=== PATIENT | female | born 1995 | race Two or more races ===

== ENCOUNTER 2016-09-28 02:17 | Outpatient (CLI) | payer OTHER ==
[~2016-09-28] VITALS: Ht 157.5 cm; Wt 84.0 kg
[2016-09-28 02:37] VITALS: BP 136/81
[2016-09-28] MEDS ORDERED: ZOLPIDEM 10MG TABLET ONE (03:40)
[2016-09-28] MEDS ORDERED: ZOLPIDEM 10MG TABLET PO PRN (04:00)
== END 2016-09-28 03:50 | disposition home or self-care (01) ==
LOC: LDOP 02:17
PROVIDERS: ATTEND Obstetrics & Gynecology
DX: O62.9 Abnormality of forces of labor, unspecified (principal); O48.0 Post-term pregnancy; Z3A.40 40 weeks gestation of pregnancy
CPT/HCPCS: 59025; 99201; G0463

== ENCOUNTER 2016-09-28 07:29 | Outpatient (CLI) | payer OTHER ==
[~2016-09-28] VITALS: Ht 157.5 cm; Wt 84.5 kg
[2016-09-28 08:09] VITALS: BP 129/59
== END 2016-09-28 11:45 | disposition home or self-care (01) ==
LOC: LDOP 07:29
PROVIDERS: ATTEND Obstetrics & Gynecology
DX: O26.893 Other specified pregnancy related conditions, third trimester (principal); O48.0 Post-term pregnancy; O62.9 Abnormality of forces of labor, unspecified; R42 Dizziness and giddiness; R10.9 Unspecified abdominal pain; H53.8 Other visual disturbances; Z3A.40 40 weeks gestation of pregnancy
CPT/HCPCS: 59025; 99211; G0463

== ENCOUNTER 2016-09-28 17:25 | Outpatient (CLI) | payer OTHER ==
[~2016-09-28] VITALS: Ht 157.5 cm; Wt 85.0 kg
[2016-09-28 18:13] VITALS: BP 132/79
[2016-09-28 18:20] LABS: AMNI OBC PASS; AMNISURE NEGATIVE (NEGATIVE)
[2016-09-28] MEDS ORDERED: MEPERIDINE/PF 100 MG/ML ONE (21:14)
[2016-09-28] MEDS ORDERED: PROMETHAZINE 25 MG/ML, 1ML ONE (21:14)
[2016-09-28] MEDS ORDERED: PROMETHAZINE 25 MG/ML, 1ML IM ONE (21:30)
[2016-09-28] MEDS ORDERED: MEPERIDINE/PF 100 MG/ML IM ONE (21:30)
== END 2016-09-28 22:00 | disposition home or self-care (01) ==
LOC: LDOP 17:25
PROVIDERS: ATTEND Obstetrics & Gynecology
DX: O42.92 Full-term premature rupture of membranes, unspecified as to length of time between rupture and onset of labor (principal); O48.0 Post-term pregnancy; Z3A.40 40 weeks gestation of pregnancy
CPT/HCPCS: 59025; 76815; 84112; 89060; 99211; J2175; J2550; G0463; Q0114

== ENCOUNTER 2016-09-29 04:23 | Inpatient (IN) | payer OTHER ==
[~2016-09-29] VITALS: Ht 157.5 cm; Wt 84.0 kg
[2016-09-29] MEDS ORDERED: D5%-LACTATED RINGERS 1,000 ML IV SCH (07:02)
[2016-09-29] MEDS ORDERED: OXYTOCIN 30U/ 0.9% NaCL 500ML 500 ML IV PRN ×2 (07:02→10:39)
[2016-09-29] MEDS ORDERED: OXYTOCIN 30U/ 0.9% NaCL 500ML 500 ML IV ONE (07:02)
[2016-09-29 07:05] VITALS: BP 118/67
[2016-09-29] MEDS ORDERED: NEWBORN KIT ONE (07:19)
[2016-09-29] MEDS ORDERED: ONDANSETRON 2MG/ML, 2ML IVPush PRN (07:30)
[2016-09-29] MEDS ORDERED: TERBUTALINE 1 MG/ML, 1ML IVPush PRN (07:30)
[2016-09-29] MEDS ORDERED: FENTANYL PF 100 MCG/2ML IV PRN (07:30)
[2016-09-29] MEDS ORDERED: FENTANYL PF 100 MCG/2ML IVPush PRN (07:30)
[2016-09-29] MEDS: LACTATED RINGERS 1,000 ML IV SCH ×7 (07:51→23:17)
[2016-09-29] MEDS ORDERED: FENTANYL/BUPIV./NS/PF 250 ML EPIDCONT ONE (09:28)
[2016-09-29] MEDS ORDERED: BUPIVACAINE 0.25% ONE (09:28)
[2016-09-29] MEDS ORDERED: FENTANYL PF 100 MCG/2ML ONE ×4 (09:28→23:23)
[2016-09-29] MEDS ORDERED: OXYTOCIN 30U/ 0.9% NaCL 500ML 500 ML ONE (10:37)
[2016-09-29] MEDS ORDERED: FENTANYL/BUPIV./NS/PF 250 ML EPIDCONT SCH (11:09)
[2016-09-29] MEDS ORDERED: LACTATED RINGERS 1,000 ML IVBOLUS PRN (11:30)
[2016-09-29] MEDS ORDERED: ACETAMINOPHEN 325 MG TABLET ONE (20:05)
[2016-09-29] MEDS ORDERED: MISOPROSTOL 200 MCG TABLET ONE (20:05)
[2016-09-29] MEDS: ACETAMINOPHEN 325 MG TABLET PO PRN (20:18)
[2016-09-29] MEDS ORDERED: BUPIVACAINE/PF 0.25% ONE (20:20)
[2016-09-29] MEDS ORDERED: LIDOCAINE-MPF 2% ,5ML ONE (20:20)
[2016-09-29] MEDS ORDERED: SODIUM CITRATE/CITRIC ACID 30 ML UDC ONE (20:24)
[2016-09-29] MEDS ORDERED: METOCLOPRAMIDE 5 MG/ML, 2ML ONE (20:24)
[2016-09-29] MEDS ORDERED: LACTATED RINGERS 1,000 ML IVBOLUS ONE (20:30)
[2016-09-29] MEDS ORDERED: METOCLOPRAMIDE 5 MG/ML, 2ML IV ONE (20:30)
[2016-09-29] MEDS ORDERED: SODIUM CITRATE/CITRIC ACID 30 ML UDC PO ONE (20:30)
[2016-09-29] MEDS ORDERED: KETOROLAC 30 MG/1 ML ONE (21:33)
[2016-09-29] MEDS ORDERED: CEFAZOLIN 1,000 MG ONE (21:33)
[2016-09-29] MEDS ORDERED: FENTANYL PF 250 MCG/5ML ONE (22:02)
[2016-09-29] MEDS ORDERED: morphine SULFATE/PF 0.5 MG/ML, 10ML ONE (22:07)
[2016-09-29] MEDS: OXYTOCIN 30U/ 0.9% NaCL 500ML 500 ML IV SCH (22:45)
[2016-09-29] MEDS ORDERED: HYDROmorphone 1 MG/ML, 1ML ONE (22:49)
[2016-09-29] MEDS ORDERED: morphine SULFATE 10 MG/ML, 1ML IVPush PRN (23:00)
[2016-09-29] MEDS ORDERED: MISOPROSTOL 200 MCG TABLET PR PRN (23:00)
[2016-09-29] MEDS ORDERED: METOCLOPRAMIDE 5 MG/ML, 2ML IV PRN (23:00)
[2016-09-29] MEDS ORDERED: ONDANSETRON 2MG/ML, 2ML IV PRN (23:00)
[2016-09-29] MEDS ORDERED: ACETAMINOPHEN 325 MG TABLET PO PRN ×2 (23:00)
[2016-09-29] MEDS ORDERED: CALCIUM CARBONATE 500 MG TAB.CHEW PO PRN (23:00)
[2016-09-29] MEDS: FENTANYL PF 100 MCG/2ML IVPush PRN ×4 (23:00→23:36)
[2016-09-30] MEDS ORDERED: FENTANYL PF 100 MCG/2ML ONE (00:08)
[2016-09-30] MEDS: FENTANYL PF 100 MCG/2ML IVPush PRN (00:10)
[2016-09-30] MEDS: HYDROmorphone 2 MG/ML, 1ML IVPush PRN ×3 (00:14→04:49)
[2016-09-30] MEDS ORDERED: HYDROmorphone 1 MG/ML, 1ML ONE (00:34)
[2016-09-30] MEDS ORDERED: METHYLERGONOVINE 0.2 MG/ML IM ONE (00:44)
[2016-09-30] MEDS ORDERED: METHYLERGONOVINE 0.2 MG/ML IM PRN (00:50)
[2016-09-30 02:50] VITALS: BP 151/90
[2016-09-30 03:00] VITALS: BP 136/91
[2016-09-30] MEDS: LACTATED RINGERS 1,000 ML IV SCH ×9 (03:09→22:45)
[2016-09-30] MEDS ORDERED: KETOROLAC 30 MG/1 ML ONE (04:37)
[2016-09-30] MEDS: OXYTOCIN 30U/ 0.9% NaCL 500ML 500 ML IV SCH ×2 (04:48→18:45)
[2016-09-30 06:37] LABS: DIFF TOTAL CELLS COUNTED 100 CELL DIFF
[2016-09-30 06:38] LABS: ANISOCYTOSIS 1+; VERIFY COUNTS? YES
[2016-09-30 06:39] LABS: MICROCYTOSIS 1+; POLYCHROMASIA 1+
[2016-09-30 06:45] VITALS: BP 132/80
[2016-09-30] MEDS: OXYcodone IR 5MG TABLET PO PRN ×4 (07:06→19:29)
[2016-09-30] MEDS: ACETAMINOPHEN 325 MG TABLET PO PRN ×2 (08:10→15:18)
[2016-09-30] MEDS: PRENATAL VIT/IRON/FA 1 EACH TABLET PO SCH (09:00)
[2016-09-30] MEDS: morphine SULFATE 10 MG/ML, 1ML IVPush PRN ×2 (10:44→13:54)
[2016-09-30 11:50] VITALS: BP 114/76
[2016-09-30 15:55] VITALS: BP 131/88
[2016-09-30] MEDS: KETOROLAC 30 MG/1 ML IVPush SCH ×2 (17:23→23:31)
[2016-09-30] MEDS: SIMETHICONE 80 MG CHEW TAB PO PRN ×3 (17:29→23:31)
[2016-09-30] MEDS: DOCUSATE 100 MG CAPSULE PO PRN (19:28)
[2016-09-30 19:30] VITALS: BP 122/80
[2016-10-01] MEDS: OXYcodone IR 5MG TABLET PO PRN ×4 (03:29→19:56)
[2016-10-01] MEDS: SIMETHICONE 80 MG CHEW TAB PO PRN ×3 (03:29→19:56)
[2016-10-01] MEDS: LACTATED RINGERS 1,000 ML IV SCH ×5 (04:45→22:45)
[2016-10-01] MEDS: OXYTOCIN 30U/ 0.9% NaCL 500ML 500 ML IV SCH ×2 (04:45→14:45)
[2016-10-01] MEDS: KETOROLAC 30 MG/1 ML IVPush SCH ×4 (05:41→23:57)
[2016-10-01 07:45] VITALS: BP 123/85
[2016-10-01] MEDS: PRENATAL VIT/IRON/FA 1 EACH TABLET PO SCH (09:00)
[2016-10-01] MEDS: DOCUSATE 100 MG CAPSULE PO PRN ×2 (09:24→19:55)
[2016-10-01 21:30] VITALS: BP 121/78
[2016-10-02] VITALS (10 sets, daily range): BP systolic 118–137; BP diastolic 76–90
[2016-10-02] MEDS: LACTATED RINGERS 1,000 ML IV SCH ×6 (00:45→22:45)
[2016-10-02] MEDS: OXYTOCIN 30U/ 0.9% NaCL 500ML 500 ML IV SCH ×3 (00:45→20:45)
[2016-10-02] MEDS ORDERED: FUROSEMIDE 20 MG/2 ML IV ONE (02:00)
[2016-10-02] MEDS: AZITHROMYCIN 500 MG in SODIUM CHLORIDE 0.9% 250 ML IV SCH (02:18)
[2016-10-02] MEDS: OXYcodone IR 5MG TABLET PO PRN ×2 (03:25→20:11)
[2016-10-02 04:40] LABS: BLOOD UREA NITROGEN 9 mg/dL (7-18)
[2016-10-02 04:45] LABS: ASPARTATE AMINO TRANSFERASE 15 U/L (15-37)
[2016-10-02] MEDS: KETOROLAC 30 MG/1 ML IVPush SCH ×2 (05:49→11:24)
[2016-10-02] MEDS: DOCUSATE 100 MG CAPSULE PO PRN ×2 (09:59→20:11)
[2016-10-02] MEDS: PRENATAL VIT/IRON/FA 1 EACH TABLET PO SCH (09:59)
[2016-10-02] MEDS: SIMETHICONE 80 MG CHEW TAB PO PRN ×2 (09:59→20:11)
[2016-10-02] MEDS ORDERED: DIPHENHYDRAMINE 50 MG/ML, 1ML IVPush ONE (13:30)
[2016-10-02] MEDS: ACETAMINOPHEN 325 MG TABLET PO PRN (14:29)
[2016-10-02] MEDS: IBUPROFEN 600 MG TABLET PO PRN (17:16)
[2016-10-03 00:50] VITALS: BP 120/78
[2016-10-03] MEDS: OXYcodone IR 5MG TABLET PO PRN ×3 (01:38→12:08)
[2016-10-03] MEDS: IBUPROFEN 600 MG TABLET PO PRN ×3 (01:38→14:23)
[2016-10-03] MEDS: AZITHROMYCIN 500 MG in SODIUM CHLORIDE 0.9% 250 ML IV SCH (02:28)
[2016-10-03 04:34] VITALS: BP 125/90
[2016-10-03] MEDS: ACETAMINOPHEN 325 MG TABLET PO PRN (05:52)
[2016-10-03] MEDS: OXYTOCIN 30U/ 0.9% NaCL 500ML 500 ML IV SCH (06:45)
[2016-10-03] MEDS: LACTATED RINGERS 1,000 ML IV SCH ×2 (06:45)
[2016-10-03 08:10] VITALS: BP 133/94
[2016-10-03] MEDS: PRENATAL VIT/IRON/FA 1 EACH TABLET PO SCH (08:20)
[2016-10-03] MEDS: DOCUSATE 100 MG CAPSULE PO PRN (08:20)
[2016-10-03] MEDS ORDERED: IBUP-1222 PO (10:33)
[2016-10-03] MEDS ORDERED: OXYC-302 PO (10:33)
[2016-10-03] MEDS ORDERED: DOCU-30 PO (10:34)
[2016-10-03] MEDS ORDERED: FERR325T20 PO (10:34)
== END 2016-10-03 14:43 | disposition home or self-care (01) | DRG 765 ==
LOC: LDOP 04:23 → LDIP 07:02 → UNDOADMIN 07:21 → 2NW 09-30 01:59
PROVIDERS: ADMIT Obstetrics & Gynecology; ATTEND Obstetrics & Gynecology
PROC: 10D00Z1 Extraction of Products of Conception, Low, Open Approach (ICD-10-PCS; principal; 2016-09-29)
PROC: 30233N1 Transfusion of Nonautologous Red Blood Cells into Peripheral Vein, Percutaneous Approach (ICD-10-PCS; 2016-10-02)
DX: O62.1 Secondary uterine inertia (principal); K91.89 Other postprocedural complications and disorders of digestive system; K56.7 Ileus, unspecified; J81.1 Chronic pulmonary edema; O86.4 Pyrexia of unknown origin following delivery; O77.0 Labor and delivery complicated by meconium in amniotic fluid; O99.814 Abnormal glucose complicating childbirth; O90.81 Anemia of the puerperium; O99.63 Diseases of the digestive system complicating the puerperium; O99.53 Diseases of the respiratory system complicating the puerperium; D64.9 Anemia, unspecified; Z83.49 Family history of other endocrine, nutritional and metabolic diseases; Z3A.40 40 weeks gestation of pregnancy; Z37.0 Single live birth
CPT/HCPCS: 36415; 71020; 80053; 82803; 82962; 83880; 85025; 86850; 86900; 86923; 93306; J0456; J0690; J1170; J1885; J2274; J2405; J3010; J1200; J1940; J2270; J2590; J2765; J7050; J7120; J7121; P9016